=== PATIENT | male | born 2000 | race Caucasian/White ===

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

== ENCOUNTER 2021-03-24 21:26 | Emergency (ER) | payer OTHER ==
[~2021-03-24] VITALS: Ht 198.1 cm; Wt 63.5 kg
[2021-03-24] MEDS ORDERED: ONDA4ODT MM (22:04)
== END 2021-03-24 22:15 | disposition home or self-care (01) ==
LOC: ER 21:26
DX: U07.1 COVID-19 (principal); R11.0 Nausea
CPT/HCPCS: 99284; A9270

== ENCOUNTER 2022-06-22 13:20 | Emergency (ER) | payer OTHER ==
[~2022-06-22] VITALS: Ht 203.2 cm; Wt 72.6 kg
[~2022-06-22 13:20] MED LIST changes: +ONDA4ODT MM
[2022-06-22] MEDS ORDERED: AMOCLA875 PO (15:30)
== END 2022-06-22 15:41 | disposition home or self-care (01) ==
LOC: ER 13:20
DX: S80.271A Other superficial bite of right knee, initial encounter (principal); W54.0XXA Bitten by dog, initial encounter
CPT/HCPCS: A9270

== ENCOUNTER 2024-02-14 01:09 | Emergency (ER) | payer SELFPAY ==
[~2024-02-14] VITALS: Ht 203.2 cm; Wt 77.1 kg
[~2024-02-14 01:09] MED LIST changes: +AMOCLA875 PO
[2024-02-14 01:58] LABS: BASOPHILS ABSOLUTE AUTO 0.04 K/mm3 (0.00-0.23); BASOPHILS PERCENT AUTO 1 % (0-2); EOSINOPHILS ABSOLUTE AUTO 0.09 K/mm3 (0.00-0.68); EOSINOPHILS PERCENT AUTO 1 % (0-6); Hematocrit 44.1 % (37.0-53.0); Hemoglobin 15.1 g/dL (13.5-17.5); IMMATURE GRAN ABSOLUTE AUTO 0.01 K/mm3 (0.00-0.10); IMMATURE GRAN PERCENT AUTO 0 % (0-1); LYMPHOCYTES ABSOLUTE AUTO 3.01 K/mm3 (0.84-5.20); LYMPHOCYTES PERCENT AUTO 37 % (21-46); MONOCYTES ABSOLUTE AUTO 0.56 K/mm3 (0.16-1.47); MONOCYTES PERCENT AUTO 7 % (4-13); Mean Corpuscular HGB 29.4 pg (26.0-34.0); Mean Corpuscular HGB Conc 34.2 g/dL (31.5-36.5); Mean Corpuscular Volume 86 fL (80-100); Mean Platelet Volume 9.9 fL (9.1-12.4); NEUTROPHILS ABSOLUTE AUTO 4.34 K/mm3 (1.96-9.15); NEUTROPHILS PERCENT AUTO 54 % (41-73); Platelet Count 225 K/mm3 (150-400); RDW Coefficient Variation 12.6 % (11.7-14.2); RDW Standard Deviation 39.8 fL (35.1-46.3); Red Blood Cell Count 5.13 M/mm3 (4.30-5.90); White Blood Cell Count 8.05 K/mm3 (4.00-11.30)
[2024-02-14 02:09] LABS: Albumin, Blood 4.7 g/dL (3.4-5.0); Albumin/Globulin Ratio 1.6 (0.8-1.8); Bilirubin, Total 0.5 mg/dL (0.1-1.0); Bun/Creatinine Ratio 17.6 (12.0-20.0); Calcium, Blood 9.2 mg/dL (8.5-10.1); Creatinine, Blood 0.74 mg/dL (0.60-1.20); Globulin, Blood 2.9 g/dL (2.2-4.0); Potassium, Blood 3.6 mmol/L (3.5-5.5); Total Protein, Blood 7.6 g/dL (6.4-8.2)
[2024-02-14] MEDS ORDERED: Mag Hydrox/AL Hydrox/Simeth 30 ML UDC PO ONE (04:10)
[2024-02-14 04:28] VITALS: BP 132/74
== END 2024-02-14 04:31 | disposition home or self-care (01) ==
LOC: ER 01:09
PROVIDERS: Student in an Organized Health Care Education/Training Program
DX: R07.9 Chest pain, unspecified (principal)
CPT/HCPCS: 71046; 80053; 84484; 85025; 93005; 93010; 99285-25; A9270